=== PATIENT | female | born 1985 | race Caucasian/White ===

== ENCOUNTER 2023-11-21 15:58 | Emergency (ER) | payer BC, OTHER, SELFPAY ==
[2023-11-21] VITALS (13 sets, daily range): BP systolic 113–146; BP diastolic 68–98; PULSE 78–89; RESP 20; TEMP 36.8; O2SAT 91–100; BMI 25.3
--- NOTE | 2023-11-21 16:01 | ED.GENADULT ---
HPI - General Adult General Date Seen: 11/21/23 Chief complaint: Abdominal Pain Stated complaint: abdominal pain Time Seen by Provider: 11/21/23 16:00 History of Present Illness HPI narrative: 38 year-old female her to ER from Urgent Care I am working for evaluation of abdominal pain . Also intermittent nausea without vomiting. Symptoms ongoing for 3-4 days. Pain was initially more right-sided but now is more generalized, occasionally on the left side and occasionally in the suprapubic region. No urinary or vaginal symptoms, states that she does have urinary frequency but that this is baseline for her. She is passing gas like normal, reports a normal bowel movement without blood or mucus in the stool this morning. Has been treating symptoms with sunday in peppermint tea that provides temporary relief in the nausea. Has an IUD that was placed in 2020, last checked for the strings 2 weeks ago and felt to be of normal length. She has not had any vaginal bleeding, states she does not get a period with her IUD. History of 2 vaginal births. No history of abdominal surgeries. No history of previous episodes like this in the past. She is sexually active, most recently in the last 2 weeks, did not experience any pain with intercourse or postcoital bleeding. She has not had any fevers, chills, night sweats, fatigue, malaise, body aches, joint pain, headaches, dizziness, URI symptoms, neck pain/stiffness, cough, difficulty swallowing, chest pain/palpitations, shortness of breath/difficulty breathing, vomiting, diarrhea, rashes. Does not routinely follow up primary care provider, last was seen in 2020 for the IUD placement by [facility]. Previously received care in 2019 through [facility] in [place]. Reports a history of thyroid problems, both hyper and hypothyroid at various times, no longer takes medication for her thyroid problems Most recent episode of pain started about 12 30 or 1 today after she ate chicken for lunch. She has the most intense pain yet and also significant nausea. No vomiting. Bowel movements have been normal. No bloody or black stools. No fevers chills. She took a Zofran, borrowed from her friend, at noon, without any relief. Provided UA at urgent care. UA was normal. Spec gravity 1.02. Negative protein . negative nitrite. Negative blood. negative leukocyte esterase. Urine test negative Related Data Home Medications Medication Instructions Recorded Confirmed No Known Home Medications 11/21/23 11/21/23 Allergies Allergy/AdvReac Type Severity Reaction Status Date / Time amoxicillin Allergy Verified 11/21/23 15:13 [facility] Social History Smoking Status: Never smoker Do you use any of these nicotine containing products: None Second hand tobacco smoke exposure: No How often do you have a drink containing alcohol: monthly or less AUDIT-C Alcohol total score: 1 Non-prescribed substance use: denies use service: No Exam Narrative: Exam Narrative: Constitutional: Appears well-developed and well-nourished. Alert. Anxious, somewhat uncomfortable appearing, but polite and Conversant. Non toxic. HENT: Head: Atraumatic. Nose: Nose normal. Mouth/Throat: Oral mucosa is clear and moist. no trismus. Pharynx normal. Tonsils symmetric. No tonsillar enlargement, erythema, or exudate. Eyes: Conjunctivae normal. EOM normal. Pupils equal, round, and reactive to light. No scleral icterus. Neck: Normal range of motion. Neck supple. No tracheal deviation present. Cardiovascular: Normal rate, regular rhythm. No gallop. No friction rub. No murmur heard. Symmetric radial artery pulses Pulmonary/Chest: Effort normal. No stridor. No respiratory distress. No wheezes. No rales. No rhonchi . No tenderness. Abdominal: Soft. Bowel sounds normal. No distension. No mass. No HSM. Epigastric and right upper quad tenderness. No Villa sign. No CVA tenderness. Mild right lower quadrant and suprapubic tenderness. No left-sided tenderness. No rebound. No guarding. Musculoskeletal: RUE: Normal range of motion. No tenderness. No deformity LUE: Normal range of motion. No tenderness. No deformity RLE: Normal range of motion. No edema. No tenderness. No deformity LLE: Normal range of motion. No edema. No tenderness. No deformity Neurological: Alert and oriented to person, place, and time. Normal strength. CN II-VII intact. No sensory deficit. GCS eye subscore is 4. GCS verbal subscore is 5. GCS motor subscore is 6. Normal coordination Skin: Skin is warm and dry. No rash noted. No pallor. Normal capillary refill. Psychiatric: Normal mood. Normal affect. Const: Vital Signs, click to edit/add: Vital Signs - 24 hr 11/21/23 16:05 11/21/23 19:21 11/21/23 19:22 Temperature 98.3 F Pulse Rate 79 82 Pulse Rate [Pulse Oximeter] 78 Respiratory Rate 20 Blood Pressure 128/80 Blood Pressure [Ri ght Upper Arm] 146/98 H Pulse Oximetry 100 100 100 Oxygen Delivery Me thod Room Air 11/21/23 19:25 11/21/23 19:30 11/21/23 19:42 Temperature Pulse Rate 87 84 Pulse Rate [Pulse Oximeter] Respiratory Rate Blood Pressure 119/74 Blood Pressure [Ri ght Upper Arm] Pulse Oximetry 100 91 99 Oxygen Delivery Me thod 11/21/23 19:45 11/21/23 20:00 11/21/23 20:02 Temperature Pulse Rate 85 85 89 Pulse Rate [Pulse Oximeter] Respiratory Rate Blood Pressure 113/68 Blood Pressure [Ri ght Upper Arm] Pulse Oximetry 100 97 98 Oxygen Delivery Me thod 11/21/23 20:03 11/21/23 20:15 11/21/23 20:21 Temperature Pulse Rate 82 81 88 Pulse Rate [Pulse Oximeter] Respiratory Rate Blood Pressure 118/71 Blood Pressure [Ri ght Upper Arm] Pulse Oximetry 97 98 100 Oxygen Delivery Me thod 11/21/23 20:30 Temperature Pulse Rate 83 Pulse Rate [Pulse Oximeter] Respiratory Rate Blood Pressure Blood Pressure [Ri ght Upper Arm] Pulse Oximetry 100 Oxygen Delivery Me thod Course Course ED Course: Recheck-6:30 p.m.. Patient is still having pain, if anything worse after Toradol mostly in her epigastrium but also in the right upper quadrant. No flank pain. And not much lower abdominal pain. Still nauseous after Zofran. Will order additional Dilaudid and Reglan. Workup so far is equivocal. Gallbladder ultrasound showed normal gallbladder. LFTs and lipase are normal. White count normal. CBC shows a normal white count, normal hemoglobin. Differential on the white count normal. Urinalysis from urgent care was normal but no micro was performed. Gallbladder ultrasound suggest possible hydronephrosis affecting the right kidney. This leads to consideration of right-sided stone. Patient is endorsing urinary frequency but no other symptoms with urination. Will proceed with stone protocol CT to evaluate for stone. CT would also show as other conditions such as colitis affecting the transverse colon. Differential still includes other causes of epigastric and right upper quadrant pain such as peptic ulcer disease. She is not anemic. No recent black or bloody stools to suggest GI bleed. Reevaluation(s) Reevaluation #1: Recheck-pain and nausea much improved after 2nd round of meds. Patient is comfortable discharging to home. Vital Signs Vital signs: Initial Vital Signs Temperature 98.3 F 11/21/23 16:05 Temperature Source Temporal Artery Scan 11/21/23 16:05 Pulse Rate 78 11/21/23 16:05 Pulse Rhythm Regular 11/21/23 16:05 Respiratory Rate 20 11/21/23 16:05 Blood Pressure 146/98 H 11/21/23 16:05 Blood Pressure Mean 114 H 11/21/23 16:05 Blood Pressure Position Sitting 11/21/23 16:05 Pulse Oximetry 100 11/21/23 16:05 Oxygen Delivery Method Room Air 11/21/23 16:05 Vital Signs Temperature 98.3 F 11/21/23 16:05 Pulse Rate 78 11/21/23 16:05 Respiratory Rate 20 11/21/23 16:05 Blood Pressure 146/98 H 11/21/23 16:05 Pulse Oximetry 100 11/21/23 16:05 Oxygen Delivery Method Room Air 11/21/23 16:05 Temperature 98.3 F 11/21/23 16:05 Pulse Rate 83 11/21/23 20:30 Respiratory Rate 20 11/21/23 16:05 Blood Pressure 118/71 11/21/23 20:21 Pulse Oximetry 100 11/21/23 20:30 Oxygen Delivery Method Room Air 11/21/23 16:05 Medications Administered Medications: Discontinued Medications Generic Name Dose Route Start Last Admin Trade Name Freq PRN Reason Stop Dose Admin Hydromorphone HCl 0.5 mg 11/21/23 18:45 11/21/23 19:24 Hydromorphone 0.5 Mg/0.5 Ml Inj IVP 0.5 mg Q1H PRN Administration Pain Ketorolac Tromethamine 15 mg 11/21/23 16:29 11/21/23 17:13 Ketorolac 15 Mg/Ml Inj IVP 11/21/23 16:30 15 mg ONCE ONE Administration Metoclopramide HCl 10 mg 11/21/23 18:46 11/21/23 19:24 Metoclopramide Hcl 5 Mg/Ml Inj IVP 11/21/23 18:47 10 mg ONCE ONE Administration Ondansetron HCl 4 mg 11/21/23 16:29 11/21/23 17:13 Ondansetron 2 Mg/Ml Inj IVP 11/21/23 16:30 4 mg ONCE ONE Administration Medical Decision Making MDM Narrative Medical decision making narrative: 38-year-old female referred to the Urgent Care to the ER today for evaluation of diarrhea, nausea ongoing for the past 3-4 days as well as abdominal pain predominantly in the right upper quadrant but also in the left side. Differential for symptoms is broad. In terms of diarrhea differential would include viral gastroenteritis, bacterial enteritis, noninfectious causes. In terms of her pain, most prominent pain is in the right upper quadrant so consider cholecystitis, biliary colic, hepatitis, pancreatitis. Less likely would be gastritis or duodenal ulcer. No right lower quadrant pain so suspicion is lower for appendicitis. Differential would also include colitis affecting the transverse and left-sided colon, among others. Laboratory workup is reassuring. White count normal. Hemoglobin normal. Platelet count normal. Electrolytes and kidney function normal. LFTs normal save for slightly elevated albumin which likely reflects hemoconcentration from dehydration. Gallbladder ultrasound shows no evidence for any gallstones, wall thickening or other signs of cholecystitis. There is questionable hydronephrosis of the right kidney. CT scan, stone protocol was obtained and shows no evidence for hydronephrosis or any obstructing stone on either side. Also no evidence for appendicitis, colitis, diverticulitis, obstruction or other surgical emergency. CT scan does show a fairly large stool burden. It is possible the constipation could be causing the patient's symptoms. Urinalysis from urgent care showed no blood, nitrite, leukocyte esterase for other abnormality on a dip. No micro was performed. With improved pain and no surgical em ergency identified based on labs and advanced imaging. Plan of care will be discharged home with careful watchful waiting. Follow up in ER if not improved within the next 24-36 hours. Treat constipation with magnesium citrate 150 mg p.o. q.6 hours p.r.n. x2 doses as well as MiraLax 1 capful mixed in oz water in the morning. This may help resolve her constipation which, if it is the cause of her pain, should improve her symptoms. If she is stooling but not improving or if her symptoms worsen, she will return to the ER immediately Lab Data Labs: Lab Results 11/21/23 Range/Units 17:00 WBC 7.57 (4.50-11.00) K/uL RBC 4.03 (4.00-5.20) m/uL Hgb 12.5 (12.0-16.0) gm/dL Hct 38.2 (33.0-51.0) % MCV 95 (80-100) fL MCH 31 (26-34) pg MCHC 33 (32-36) gm/dL RDW Coeff of [place] 12.3 (11.5-15.5) % Plt Count 264 (140-440) K/uL Neut % (Auto) 67.4 (42.0-72.0) % Lymph % (Auto) 23.4 (20-44) % [place] % (Auto) 6.6 (0.0-11.0) % Eos % (Auto) 2.0 (0.0-7.0) % Baso % (Auto) 0.5 (0.0-3.0) % Neut # (Auto) 5.10 (1.7-7.0) K/uL Lymph # (Auto) 1.77 (0.90-2.90) K/uL [place] # (Auto) 0.50 (0.00-0.90) K/UL Eos # (Auto) 0.15 (0.00-0.50) K/uL Baso # (Auto) 0.04 (0.00-0.30) K/uL Abs Immat Gran (auto) 0.01 (0.00-0.30) K/uL Imm/Tot Granulo (auto) 0.1 % Sodium 140 (135-149) mmol/L Potassium 3.8 (3.6-5.1) mmol/L Chloride 103 (96-114) mmol/L Carbon Dioxide 23 (20-32) mmol/L Anion Gap 14 (7-15) mEq/L BUN 8 (5-24) mg/dL Creatinine 0.5 (0.5-1.5) mg/dL Estimated Creat Clear 142.81 Estimated GFR 123 ml/min Glucose 109 (60-115) mg/dL Calcium 9.4 (8.4-10.6) mg/dL Total Bilirubin 1.2 (0.1-1.5) mg/dL AST 28 (12-35) U/L ALT 29 (4-35) U/L Alkaline Phosphatase 56 (40-150) U/L Total Protein 8.2 (6.0-8.3) g/dL Albumin 5.1 H (3.3-5.0) g/dL Lipase 60 (23-300) U/L Imaging Data US Gallbladder: Attestation: I have reviewed the pertinent imaging results. Radiologist's impression: IMPRESSION: Mild right renal pelviectasis. No obstructing calculus seen. Otherwise, normal right upper quadrant ultrasound. CT scan - abdomen: Attestation: I have reviewed the pertinent imaging results. Radiologist's impression: IMPRESSION: 1. No hydronephrosis or obstructing urinary calculi. Mildly prominent bilateral extrarenal pelves. 2. Large amount of stool. Fecalized material within distal small bowel loops suggesting stasis. 3. No other acute findings in the abdomen or pelvis on this noncontrast exam. Discharge Plan Discharge Clinical Impression: Abdominal pain Patient Disposition: Home, Self-Care Condition: Stable Instructions: Abdominal Pain (ED) Additional Instructions: As we discussed, the cause for your pain is not definitively clear at this time. It is possible that your pain could be related to constipation. Please try to treat constipation at home. Tomorrow morning take a ghee-oap-lovlpba laxative called magnesium citrate. Each bottle usually comes as a 10 oz bottle. Take 150 mL (5 oz) by mouth. If you are not having bowel movements within 6 hours, take an additional 150 mL by mouth. In addition take MiraLax, 1 capful mixed in 8 oz of water by mouth tomorrow morning and then once daily as needed to maintain normal, soft bowel movements. If your pain gets worse or you have other concerning symptoms, please return to the ER right away. If you are not improved within 24-36 hours, please see your doctor or return to the ER right away to be rechecked. Prescriptions: No Action No Known Home Medications Follow Up/Referrals: Provider,Not a Local [Primary Care Provider] - Stand Alone Forms: [employer] For Home Info Instructions
--- NOTE | 2023-11-21 16:29 | CRLHL7_ITS ---
For Patients: As a result of the Century Cures Act, medical imaging exams and procedure reports are released immediately into your electronic medical record. You may view this report before your referring provider. If you have questions, please contact your health care provider. INDICATION: Abdominal pain COMPARISON: None. TECHNIQUE: Ames-scale and color ultrasound of the right upper quadrant to include the liver, gallbladder (or gallbladder fossa), biliary tree, pancreatic head, and right kidney. FINDINGS: Liver: Normal hepatic echogenicity and normal echotexture. No mass. Gallbladder: Normal. Distention: Contracted. Wall: Normal thickness. Stones: None. Sludge: None. Pericholecystic inflammation/fluid: None. Sonographic Villa`s sign: Negative. Bile ducts: Not dilated. The common bile duct measures 5 mm. Pancreas: Normal. Right Kidney: Renal length: 11.4 cm Parenchyma: Normal thickness and normal echogenicity. Cyst: None Mass: None Calculi: None Urinary tract: Mild pelviectasis. RUQ Ascites: None. IMPRESSION: Mild right renal pelviectasis. No obstructing calculus seen. Otherwise, normal right upper quadrant ultrasound. Dictated by Nkechi Schuster MD @ 11/21/2023 6:09:08 PM (Electronically Signed)
--- OUTSIDE RECORDS SUMMARY | 2023-11-21 16:38 | XMS_ITS | Clinical Summary ---
Author Name Unknown Organization [facility] Address [place], [place] [address] Care Team Providers Care Netsuite Developer Name Role Phone Lianet Breen NP Primary Care Provider Allergies Active Allergy Reactions Criticality Noted Date Comments Amoxicillin GI Upset Low 01/23/2018 Gluten GI Upset Medium 05/05/2019 Unlisted Allergen (Include Detail In Comments) Runny Nose 01/23/2018 Animal dander and seasonal Medications Medication Sig Dispensed Refills Start Date End Date Status cyclobenzaprine (FLEXERIL) 5 mg tabletIndications:U pper back pain Take 1 Tablet (5 mg) by mouth 3 times daily if needed for Muscle Spasm. 21 Tablet 0 09/21/2023 Active methylPREDNISolone (Medrol, Meir,) 4 mg tabletIndications:U pper back pain,Neck pain on left side Take by mouth as instructed per packaging. 21 Tablet 0 09/21/2023 Active Active Problems Problem Noted Date Diagnosed Date History of thyroiditis 01/31/2021 Family history of breast cancer 01/31/2021 Overview: Mother, in her 50s, BRCA negative Carpal tunnel syndrome during 05/06/20 19 Iron deficiency anemia 01/23/2018 Resolved Problems Problem Noted Date Diagnosed Date Resolved Date 37 weeks gestation of 05/06/2019 01/31/2021 Oligohydramnios 05/06/2019 01/31/2021 Encounters Date Type Department Care Team Description 09/21/2023 9:20 AM PHARMACEUTICAL PHYSICIAN Office Visit [facility] [address] [place] [phone] Mariana Isabel NP Neck Pain/problem 09/21/2023 Telephone [facility] [address] [place] [phone] Mariana Isabel NP Medication Management (cyclobenzaprine (FLEXERIL) 5 mg tablet/methylPREDNISo lone (Medrol, Meir,) 4 mg tablet/) 09/21/2023 Travel from Last 3 Months Immunizations Name Administration Dates Next Due COVID-19 vaccine (Moderna 10 0mcg/0.5mL) PF, MDV 09/20/2021,01/04/2021,12/07/2020 Influenza, IIV4 11/16/2019,09/22/2018 Tdap 03/04/2019 Family History Medical History Relation Name Comments Good Health Father Good Health Mother Postmenopausal breast cancer Mother BRCA negative Cancer-colon No Family History Relation Name Status Comments Father Alive Mother Alive Social History Tobacco Use Types Packs/Day Years Used Date Smoking Tobacco: Never Smokeless Tobacco: Never Tobacco Cessation:Counseling Given: Yes Alcohol Use Standard Drinks/Week Comments Not Currently 0 (1 standard drink = 0.6 oz pur e alcohol) rare PHQ-2 Answer Date Recorded PHQ-2 TOTAL SCORE 0 01/27/2021 Social Connections Answer Date Recorded Frequency of Communication with Friends and Fami ly 0 07/09/2023 Financial Resource Strain Answer Date R ecorded Difficulty of Paying Living Expenses 3 07/09/2023 Difficulty of Paying Living Expenses Not on file 07/09/2023 Food Insecurity Answer Date Recorded Worried About Running Out of Food in the Last Ye ar 1 07/09/2023 Transportation Needs Answer Date Record ed Lack of Transportation (Medical) 1 07/09/2023 Housing Stability Answer Date Recorded Unable to Pay for Housing in the Last Year 1 07/09/2023 Sex and Gender Information Value Date Recorded Sex Assigned at Not on file Gender Identity Not on file Sexual Orientation Not on file Obstetrics History Para Term AB IAB SAB Ectopic Multiple Livin g Live Births 2 1 1 1 1 Date Outcome GA Total Labor Labor/2nd/3rd Weight Sex Delivery Anes PTL Kelli A1 A5 Name Cl in 05/07 Term 37w 3d 0h 07m 2.55 kg (5 lb 10 oz) M Vag IV Meds Merline ng 9 9 ELLIOTT W,BB TATIANA Delivery Location:[facility]) Last Filed Vital Signs Vital Sign Reading Time Taken Comments Blood Pressure 118/76 09/21/2023 9:56 AM PHARMACEUTICAL PHYSICIAN Pulse 85 09/21/2023 9:56 AM PHARMACEUTICAL PHYSICIAN Temperature 37.1 ??C (98.7 ??F) 09/21/2023 9:56 AM CS T Respiratory Rate 12 09/21/2023 9:56 AM PHARMACEUTICAL PHYSICIAN Oxygen Saturation 100% 09/21/2023 9:56 AM PHARMACEUTICAL PHYSICIAN Inhaled Oxygen Concentration - - Weight 71.4 kg (157 lb 4.8 oz) 07/09/2023 2:41 P M CDT Height 173 cm (5' 8.11) 05/07/2022 8:48 AM CDT Body Mass Index 23.84 05/07/2022 8:48 AM CDT Plan of Treatment Health Maintenance Due Date Last Done Comments HIV for age 15-65 2000 Depression screening for age 12+ 01/27/2022 01/27/2021, 01/23/2018 BMI (ht and wt on same day) for age 18+ 05/07/2023 05/07/2022, 01/27/2021, 01/23/2018 COVID-19 vaccine series ( season) 2023 09/20/2021, 01/04/2021, 12/07/2020 Influenza for age 9-49 06/28/2023 0, 09/22/2018 Pap test for age 21-65 01/27/2026 1, 01/27/2021 Tetanus booster 03/04/2029 03/04/2019 Tdap Completed 03/04/2019 Hepatitis C screening for ag e 18-79 Completed 05/07/2022 Pneumococcal series for age 6-64 Aged Out No longer eligible b ased on patient's age to complete this topic Advance Directives Latest Code Status on File Code Status Date Activated Date Inactivated Comments Full Code 05/06/2019 7:53 AM 05/08/2019 1:28 PM Code Status History Code Status Date Activated Date Inactivated Comments Full Code 05/05/2019 4:10 PM 05/05/2019 10:05 PM Care Teams Netsuite Developer Relationship Specialty Start Date End Date Lianet Breen NP [address] [place] [address] [place] [address] PCP - General Nurse Practitioner - Family 05/07/22
[2023-11-21] MEDS: KETOROLAC 15 MG/ML inj IVP (17:13)
[2023-11-21] MEDS: ONDANSETRON 2 MG/ML inj 4 MG IVP (17:13)
[2023-11-21 17:21] LABS: Basophils Absolute Auto 0.04 K/uL (0.00-0.30); Basophils Percent Auto 0.5 % (0.0-3.0); Eosinophils Absolute Auto 0.15 K/uL (0.00-0.50); Hematocrit 38.2 % (33.0-51.0); Hemoglobin* 12.5 gm/dL (12.0-16.0); Immature Granulocytes Abs Auto 0.01 K/uL (0.00-0.30); Immature Granulocytes Pct Auto 0.1 %; Lymphocytes Absolute Auto 1.77 K/uL (0.90-2.90); Lymphocytes Percent Auto 23.4 % (20-44); Mean Corpuscular HGB Conc 33 gm/dL (32-36); Mean Corpuscular Hemoglobin 31 pg (26-34); Mean Corpuscular Volume 95 fL (80-100); Monocytes Percent Auto 6.6 % (0.0-11.0); Neutrophils Percent Auto 67.4 % (42.0-72.0); Platelet Count* 264 K/uL (140-440); RDW Coefficient of Variation % 12.3 % (11.5-15.5); Red Blood Count 4.03 m/uL (4.00-5.20); White Blood Count* 7.57 K/uL (4.50-11.00)
[2023-11-21 17:33] LABS: Albumin* 5.1 g/dL (3.3-5.0); Chloride* 103 mmol/L (96-114); Sodium* 140 mmol/L (135-149)
[2023-11-21 17:34] LABS: Potassium* 3.8 mmol/L (3.6-5.1)
[2023-11-21 17:35] LABS: Creatinine* 0.5 mg/dL (0.5-1.5); Est. Creatinine Clearance* 142.81; Estimated Glomerular Filt Rate 123 ml/min
[2023-11-21 17:36] LABS: Alanine Aminotransferase* 29 U/L (4-35); Alkaline Phosphatase* 56 U/L (40-150); Anion Gap 14 mEq/L (7-15); Aspartate Amino Transferase* 28 U/L (12-35); Bilirubin Total* 1.2 mg/dL (0.1-1.5); Blood Urea Nitrogen* 8 mg/dL (5-24); Carbon Dioxide* 23 mmol/L (20-32); Glucose* 109 mg/dL (60-115); Lipase* 60 U/L (23-300); Total Protein* 8.2 g/dL (6.0-8.3)
[2023-11-21 17:37] LABS: Calcium* 9.4 mg/dL (8.4-10.6)
[2023-11-21 17:41] LABS: Slide Review Reflex No
--- NOTE | 2023-11-21 18:46 | CRLHL7_ITS ---
For Patients: As a result of the Century Cures Act, medical imaging exams and procedure reports are released immediately into your electronic medical record. You may view this report before your referring provider. If you have questions, please contact your health care provider. INDICATION: Right upper quadrant pain, epigastric pain, nausea. Question right hydronephrosis on ultrasound. TECHNIQUE: CT of the abdomen and pelvis acquired without intravenous contrast. Coronal and sagittal reconstructions. COMPARISON: Same day abdominal ultrasound. FINDINGS: Liver: Unremarkable. Gallbladder and bile ducts: Unremarkable. No biliary dilation. Spleen: Unremarkable. Pancreas: Unremarkable. Adrenal glands: Unremarkable. Kidneys, Ureters, and Bladder: Mildly prominent bilateral extrarenal pelves without hydronephrosis or ureteral dilation. No obstructing urinary calculi identified. No bladder wall thickening. Reproductive structures: IUD in the uterus. No obvious adnexal mass. GI tract/Peritoneum: No small bowel dilation. Large amount of stool throughout the colon. Fecalized material within distal small bowel loops. The appendix is not identified. Trace free fluid in the pelvis is likely physiologic. No intraperitoneal free air. Vasculature: Abdominal aorta is normal in caliber. Lymph nodes: No lymphadenopathy. Abdominal wall: Small fat containing umbilical hernia. Bones: Unremarkable. Lower chest: Unremarkable. IMPRESSION: 1. No hydronephrosis or obstructing urinary calculi. Mildly prominent bilateral extrarenal pelves. 2. Large amount of stool. Fecalized material within distal small bowel loops suggesting stasis. 3. No other acute findings in the abdomen or pelvis on this noncontrast exam. Please note that all CT scans at this facility use dose modulation, iterative reconstruction, and/or weight-based dosing when appropriate to reduce radiation dose to as low as reasonably achievable. Dictated by Ester Ayoub MD @ 11/21/2023 7:36:10 PM (Electronically Signed)
[2023-11-21] MEDS: HYDROmorphone 0.5 mg/0.5 ml inj IVP (19:24)
[2023-11-21] MEDS: METOCLOPRAMIDE HCL 5 MG/ML INJ 10 MG IVP (19:24)
== END 2023-11-21 21:38 | disposition home or self-care (01) ==
PROVIDERS: Emergency Provider Emergency Medicine
DX: R10.9 Unspecified abdominal pain (principal)
CPT/HCPCS: 36415; 74176; 76705; 80053; 83605; 83690; 85025; 87045; 87046; 87427; 87493; 94761; 96374; 96375; 99284; J1170; J1885; J2405; J2765